=== PATIENT | male | born 1975 | race Hispanic/Latino ===

== ENCOUNTER 2020-10-12 01:08 | Emergency (ER) | payer OTHER ==
[2020-10-12] MEDS ORDERED: METHYLPREDNISOLONE SOD SUCC 40MG/ML 1ML ONE (01:36)
[2020-10-12] MEDS ORDERED: CYCLOBENZAPRINE HCL 10 MG TABLET ONE (01:37)
[2020-10-12] MEDS ORDERED: KETOROLAC TROMETHAMINE 30MG/ML ONE (01:37)
== END 2020-10-12 03:29 | disposition home or self-care (01) ==
LOC: EDH 01:08
DX: S83.92XA Sprain of unspecified site of left knee, initial encounter (principal); S39.012A Strain of muscle, fascia and tendon of lower back, initial encounter; V89.2XXA Person injured in unspecified motor-vehicle accident, traffic, initial encounter; Y93.I9 Activity, other involving external motion; Y92.410 Unspecified street and highway as the place of occurrence of the external cause; Y99.8 Other external cause status
CPT/HCPCS: 72100; 73562; 96372 ×2; 99284; J1885; J2920